=== PATIENT | male | born 1940 | race Caucasian/White ===

== ENCOUNTER → 2018-07-05 | Outpatient (CLI) | payer OTHER ==
[~2018-07-05] MED LIST: ALLERGY MED; DIOVAN; DIOVAN HCT 3201 EACH PO; IBUPROFEN 200200 M1 PO; LIPITOR; LIPITOR40 MG PO; NABUMETONE 750750 M1 PO; NAPROSYN500 MG PO; NORCO 5-325 TA1 EACH PO; NORFLEX100 MG PO; OXYCODON-ACETA1 EAC1 PO; OXYCODONE-ACET1 EAC2 PO; TRICOR; TRICOR145 MG PO; VALIUM5 MG PO
[2018-07-05 13:13] LABS: BASOPHILS 0.6 % (0.0-2.0); EOSINOPHILS 1.7 % (0.0-3.0); HEMATOCRIT 32.1 % (42.0-52.0); LYMPHOCYTES 22.4 % (24.0-44.0); MCHC 34.3 g/dL (28.0-37.0); MCV 96.1 fL (80.0-100.0); MONOCYTES 6.8 % (1.0-8.0); PLATELET COUNT 308 thou/uL (150-400); POLYS 68.5 % (36.0-66.0); RBC 3.34 mil/uL (4.50-6.00); RDW 13.2 % (10.5-14.5); WBC 7.3 thou/uL (4.0-11.0)
[2018-07-05 13:17] LABS: URINE BILIRUBIN NEGATIVE (Negative); URINE BLOOD 1+ (Negative); URINE CLARITY CLEAR; URINE COLOR YELLOW; URINE GLUCOSE-RANDOM* NEGATIVE (Negative); URINE KETONES NEGATIVE (Negative); URINE LEUKOCYTES-REFLEX NEGATIVE (Negative); URINE NITRITE-REFLEX NEGATIVE (Negative); URINE PROTEIN (DIPSTICK) 2+ (Negative); URINE SPECIFIC GRAVITY >= 1.030 (1.005-1.035); URINE UROBILINOGEN 0.2 E.U./dl (0.2-1.0)
[2018-07-05 13:26] LABS: BACTERIA-REFLEX None Seen /HPF (None Seen); SQUAMOUS None Seen /LPF (0-3); URINE RBC 0-2 Rare /HPF (0-2); URINE WBC-REFLEX None Seen /HPF (0-5)
[2018-07-05 13:27] LABS: CASTS None Seen /LPF (None Seen); CRYSTALS None Seen /LPF (None Seen)
[2018-07-05 13:34] LABS: ALBUMIN 3.4 g/dL (3.4-5.0); ANION GAP 9 mmol/L (7-16); BUN 19 mg/dL (7-18); CALCIUM 8.6 mg/dL (8.5-10.1); CHLORIDE 105 mmol/L (98-107); CHOLESTEROL 193 mg/dL (<200); CO2 25 mmol/L (21-32); CREATININE 1.3 mg/dL (0.7-1.3); GLUCOSE 94 mg/dL (74-106); HDL CHOLESTEROL 68 mg/dL (>40); LDL CHOLESTEROL 96 mg/dL (<100); MAGNESIUM 1.6 mg/dL (1.8-2.4); POTASSIUM 3.9 mmol/L (3.5-5.1); SGOT 20 U/L (15-37); SGPT 13 U/L (30-65); SODIUM 139 mmol/L (136-145); TC:HDL 2.8 Ratio (Not establshd); TOTAL BILIRUBIN 0.3 mg/dL (<0.1-1.0); TOTAL PROTEIN 6.8 g/dL (6.4-8.2); TRIGLYCERIDE 147 mg/dL (<150); VLDL 29 mg/dL (<40)
[2018-07-05 13:54] LABS: TSH 1.285 uIU/mL (0.358-3.740)
== END ==
LOC: SEN 08:18
PROVIDERS: Nurse Practitioner Family
DX: I10 Essential (primary) hypertension (principal); E78.5 Hyperlipidemia, unspecified

== ENCOUNTER 2018-12-21 13:40 | Inpatient (IN) | payer OTHER ==
[~2018-12-21] VITALS: Ht 177.8 cm; Wt 78.8 kg
--- NOTE | ~2018-12-21 | EMS ---
[address] [address] EMS Patient Care Report Name: CALLUM IBRAHIM Room #: REG MATT Guthrie#: [id number] Admission: 12/21/18 Attend Phys: Discharge: Date of : 44 Report #: [id number] THIS REPORT FOR: //name// Report Transmitted: 12/21/2018 13:48 EMS Care Summary [facility] MED-ACT Incident [id number] @ 12/21/2018 12:56 Incident Location [address] [place] [address] Patient CALLUM SANTIAGO Male, 78 Years 1940 Patient Address [address] [place] [address] Patient History Dementia,Hypertension,Hyperlipidemia, Patient Allergies No known allergies, Patient Medications Memantine, Tricor, Atorvastatin, Valsartan, Citalopram, Hydrochlorothiazide (Hctz), Donepezil, Chief Complaint He's not acting his normal self Disposition Transported No Lights/Hope Dispatch Reason Altered Mental Status Transported To [facility] Narrative [id number] arrived to find pt seated in chair [facility] and [address] [address] EMS Patient Care Report Name: CALLUM IBRAHIM Room #: REG MATT Cuellar.#: [id number] Admission: 12/21/18 Attend Phys: Discharge: Date of : 44 Report #: [id number] in the care of [id number] personnel and pts son. Pts son reports pt has dementia and has troubles forming words and answering questions but that he usually knows his name. Today, pts son arrived around noon to take pt to an appointment. Pt had a friend over earlier that had remarked to pts son that pt appeared very lucid this morning. This was around 9:00 am today. Pts son states pt had been out for two walks this morning, no out of the ordinary, and had been sitting outside. Pts son went out to have pt come inside and pt wouldn't verbally respond to pt and was weak. Pts son denies any recent illness for patient, history of UTI, Stroke or TIA. Pts son states pt has overnight caregivers and nothing out of the ordinary was reported to son. Pt was able to stand from chair and take a few steps to the cot. Pt secured in semi-fowlers position and taken to MICU for non-emergent transport to [place] as pts son requested. Pt was noted to answer some questions verbally but was confused and had some random utterances. Pt remained firm on the left arm pain and unable to lift it due to pain. Pt report given to ER physician and then pt was taken to CT scanner. Pt report and transfer of care given to MELTING OPERATOR room #1. Initial Vitals @13:20P: 81,R: 16,BP: 122/62,SpO2: 97,NH Suspected: false @13:30P: 79,R: 16,BP: 123/62,SpO2: 96, @13:13P: 88,R: 16,BP: 119/60,GCS: 14,Temp: 99.4F,SpO2: 98,Revised Trauma: 12,NH Suspected: false @PTAP: 87,R: 18,BP: 108/54,GCS: 14,Glucose: 178,SpO2: 96,Revised Trauma: 12, Assessments @13:20MENTAL:Person Oriented,SKIN:Diaphoresis,Hot,HEENT:Head/Face: No Abnormalities,Neck/Airway: No Abnormalities,LUNG SOUNDS:General: No Abnormalities,ABDOMEN:General: No Abnormalities,PELVIS//GI:Incontinence,EXTREMITIES:Left Arm: Other,Right Arm: No Abnormalities,Left Leg: No Abnormalities,Right Leg: No Abnormalities,PULSE:Radial: 2+ Normal,NEURO:Other, Impression Transient Cerebral Ischemic Attack (TIA) Procedures @13:2012-Lead ECGResponse: UnchangedSucceeded@13:20Saline Lock 10cc (18 ga) Site: Hand-RightResponse: UnchangedSucceeded Timeline [facility] [address] [place] [address] EMS Patient Care Report Name: CALLUM IBRAHIM Room #: REG [facility].#: [id number] Admission: 12/21/18 Attend Phys: Discharge: Date of : 44 Report #: [id number] BRICKLAYER PAVING BRICK,BP: 108/54 M,PULSE: 87,RR: 18 R,SPO2: 96 Ox,ETCO2: ,B,PAIN: ,GCS: 14, 12:55,Call Received 12:55,Psap Call 12:56,Dispatched 12:56,En Route 13:02,On Scene 13:03,At Patient 13:13,BP: 119/60 M,PULSE: 88,RR: 16 R,SPO2: 98 Ox,ETCO2: ,BG: ,PAIN: ,GCS: 14, 13:20,12-Lead ECG,Response: UnchangedSucceeded, 13:20,BP: 122/62 M,PULSE: 81,RR: 16 R,SPO2: 97 Ox,ETCO2: ,BG: ,PAIN: ,GCS: , 13:20,Saline Lock 10cc 18 ga Site: Hand-Right,Response: UnchangedSucceeded, 13:21,Depart Scene 13:30,BP: 123/62 M,PULSE: 79,RR: 16 R,SPO2: 96 Ox,ETCO2: ,BG: ,PAIN: ,GCS: , 13:36,At Destination 14:02,Call Closed Disclaimer v1.1 Copyright 2019 [employer] This EMS Care Summary contains data elements from the applicable legal record (which may be displayed differently). It is designed to provide pertinent information for the following purposes: continuity of care, clinical quality, and state data reporting. The complete legal record is available to ED staff and administrators of the receiving hospital in [employer]'s Patient Tracker. All data is provided "as is."
[2018-12-21 13:40] VITALS: BP 133/61
[2018-12-21 14:00] LABS: ABSOLUTE NEUTROPHILS 5.9 thou/uL (1.4-8.2); BASOPHILS 0.4 % (0.0-2.0); EOSINOPHILS 1.1 % (0.0-3.0); HEMOGLOBIN 10.1 gm/dL (14.0-18.0); LYMPHOCYTES 18.4 % (24.0-44.0); MCH 31.1 pg (26.0-34.0); MCHC 33.6 g/dL (28.0-37.0); MCV 92.5 fL (80.0-100.0); MONOCYTES 9.6 % (1.0-8.0); PLATELET COUNT 323 thou/uL (150-400); POLYS 70.5 % (36.0-66.0); RBC 3.24 mil/uL (4.50-6.00); RDW 13.5 % (10.5-14.5); WBC 8.4 thou/uL (4.0-11.0)
[2018-12-21 14:10] LABS: ANION GAP 10 mmol/L (7-16); BUN 32 mg/dL (7-18); CALCIUM 8.3 mg/dL (8.5-10.1); CHLORIDE 108 mmol/L (98-107); CO2 24 mmol/L (21-32); CREATININE 1.7 mg/dL (0.7-1.3); GLUCOSE 164 mg/dL (74-106); POTASSIUM 3.5 mmol/L (3.5-5.1); SODIUM 142 mmol/L (136-145)
[2018-12-21 14:12] LABS: APTT 29.3 Seconds (24.5-32.8)
[2018-12-21 14:20] LABS: ALBUMIN 2.9 g/dL (3.4-5.0); SGOT 11 U/L (15-37); SGPT 10 U/L (30-65); TOTAL BILIRUBIN 0.3 mg/dL (<0.1-1.0); TOTAL PROTEIN 6.4 g/dL (6.4-8.2); TROPONIN-I <0.06 ng/mL (<0.06)
[2018-12-21 15:10] LABS: URINE BILIRUBIN NEGATIVE (Negative); URINE BLOOD NEGATIVE (Negative); URINE CLARITY CLEAR; URINE COLOR YELLOW; URINE GLUCOSE-RANDOM* NEGATIVE (Negative); URINE KETONES NEGATIVE (Negative); URINE LEUKOCYTES NEGATIVE (Negative); URINE NITRITE NEGATIVE (Negative); URINE PROTEIN (DIPSTICK) TRACE (Negative); URINE SPECIFIC GRAVITY 1.015 (1.005-1.035); URINE UROBILINOGEN 0.2 E.U./dl (0.2-1.0)
[2018-12-21] MEDS ORDERED: ARICEPT 5 MG TAB5 MG PO (16:11)
[2018-12-21] MEDS ORDERED: CELEXA20 MG PO (16:12)
[2018-12-21 16:14] VITALS: BP 145/67
--- NOTE | 2018-12-21 18:35 | NUR ---
PATIENT ADMITTED TO ROOM AT THIS TIME. HE WAS BROUGHT UP BY SECURITY HE IS AN ELOPMENT RISK. HE KEEPS TRYING TO LEAVE ROOM TO "GO HOME". NOT REDIRECTABLE AT ALL AT THIS TIME. HE AMBULATES WITH STEADY GAIT. SPEECH IS NOT VERY CLEAR BUT HE DOES VOICED CONCERN THAT HE WANTS TO GO HOME.
[2018-12-21 20:55] VITALS: BP 154/63
--- NOTE | 2018-12-22 03:58 | NUR ---
Assumed care at 1845. Pt resting in bed with son at bedside. AOX2. VSS. Speaks in monotone one or two words at a time. Skin in intact. Lungs are clear. Up at raymundo. Seater has been discontinue. Pt hasnt tried to wonder around. No identified needs at the moment. Call light within reach. Will continue to monitor.
[2018-12-22 06:08] LABS: HEMATOCRIT 30.7 % (42.0-52.0); HEMOGLOBIN 10.2 gm/dL (14.0-18.0); MCH 31.2 pg (26.0-34.0); MCHC 33.3 g/dL (28.0-37.0); MCV 93.6 fL (80.0-100.0); RBC 3.28 mil/uL (4.50-6.00); RDW 13.6 % (10.5-14.5); WBC 8.3 thou/uL (4.0-11.0)
[2018-12-22 06:21] LABS: CALCIUM 8.7 mg/dL (8.5-10.1); CREATININE 1.6 mg/dL (0.7-1.3)
[2018-12-22 06:22] LABS: POTASSIUM 4.5 mmol/L (3.5-5.1)
[2018-12-22 07:30] VITALS: BP 137/61
--- NOTE | 2018-12-22 07:47 | EKG ---
[place] [address] [facility] [place] [address] ELECTROCARDIOGRAM REPORT Name: ESTEBANMihaelaCALLUM Nino Room #: 462-P ADM IN M.R.#: [id number] Admission: 12/21/18 Attend Phys: Narinder Chandler MD Discharge: Date of : 44 Report #: [id number] THIS REPORT FOR: //name// [facility] ED Test Date: 2018-12-21 Test Time: 13:57:13 Pat Name: CALLUM IBRAHIM Department: Room: 462 Gender: M Health Care Attorney: JESS : 1940 Requested By: Martin Gorman Order Number: [id number] MD: Carlos Daugherty Measurements Intervals [place] Rate: 73 P: 39 ND: 157 QRS: -34 QRSD: 100 T: 64 QT: 382 QTc: 421 Interpretive Statements Sinus rhythm Left axis deviation Abnormal R-wave progression, early transition Baseline wander in lead(s) V5 No previous ECG available for comparison Electronically Signed On 12-22-2018 7:46:48 CDT by Carlos Daugherty [email or web address] <ELECTRONICALLY SIGNED> By: Carlos Daugherty MD, [facility] 12/22/18 0746 [id number] Carlos Daugherty MD, [facility] /EPI
--- NOTE | 2018-12-22 13:41 | NUR ---
DISCHARGE PLANNING. ANTICIPATED DISCHARGE LATER THIS WEEK. POST ACUTE RECOMMENDED AT DISCHARGE. PATIENT WILL NEED TO TRANSITION INTO RN INFORMATICS CARE PLACEMENT ONCE REHAB STENT IS COMPLETED. REFERRAL FAXED TO [facility] ([facility] FOR DISCHARGE PLACEMENT NEEDS, PER FAMILY REQUEST. PATIENTS RESIDES AT [facility]. CALL RECEIVED FROM [facility] ADMISSIONS. ACCEPTING OF PATIENT AT DISCHARGE. [facility] TO FACILITATE PATIENTS NEEDS ONCE DISCHARGE ORDERS COMPLETED. UNIT SW AWARE. FOLLOWING TO ASSIST.
--- NOTE | 2018-12-22 13:46 | NUR ---
TOWARDS POC PT A/O X1, CALM, COOPERATIVE. NO AGRESSIVE BEHAVIOR NOTED. WILL CONTNUE TO MONITOR.
[2018-12-22 14:56] VITALS: BP 139/59
--- NOTE | 2018-12-22 16:30 | NUR ---
PT ADMITTED RELATED TO AMS. CM REVIEWED CHART AND SPOKE WITH CARE TEAM. CM MET WITH PT AND DTR IN LAW JOSÉ AT BEDSIDE THIS DAY.PT WAS SLEEPING SO DTR IN LAW PROVIDED HISTORY. SHE INDICATED THAT PT AND SPOUSE HAD BEEN LIVING IN AN APARTMENT ICT HELP DESK OFFICER BUT THAT PT'S SPOUSE HAD BEEN HOSPITALIZED HERE AND WENT TO [facility] AND WILL BE TRANSITIONING TO LTC FROM THERE. THEY INDICATED THAT PT CAN'T LIVE ALONE AND CAN'T TAKE CARE OF HIMSELF. THEY ASKED THAT REFERAL BE SENT TO [facility] FOR POSSIBLE SKILLED WITH TRAMSITION TO LT FOR PT WELL. REFERRAL WAS SENT AND THEY ACCEPTED PT. CM CALLED AND LEFT VM FOR PT'S SON. CM TO FOLLOW INDICATED WITH DC PLANNING.
[2018-12-22 21:15] VITALS: BP 145/67
--- NOTE | 2018-12-23 03:56 | NUR ---
TOWARDS POC Assumed care at 1845. Pt resting in bed. VSS. AOX1. Son is at bedside. No incident of agitation. Pt has been ambulating a lot on unit with sitter monitoring. No identified needs at the moment. Will continue to monitor.
[2018-12-23 10:09] VITALS: BP 140/55
--- NOTE | 2018-12-23 13:43 | NUR ---
PT STABLE THROUGHOUT SHIFT. SITTER D/C'D. PT REMIANS CONFUSED BUT COOPERATIVE. PT RESTING, WILL CONTINUE TO MONITOR.
[2018-12-23 13:58] VITALS: BP 150/63
--- NOTE | 2018-12-23 19:24 | NUR ---
AT END OF SHIFT PT BECAME EXTREMELY ADAMANT ABOUT LEAVING, UNABLE TO REDIRECT OR CONVINCE TO RETURN TO ROOM. PT GIVEN MEDICATION AND ORDER FOR IV MED. WILL CONTINUE TO MONITOR.
[2018-12-24 00:21] VITALS: BP 141/56
--- NOTE | 2018-12-24 03:21 | NUR ---
ASSUMED CARE AROUND 1900. ALERT AND AWAKE, DISORITNETED X 4. CONSTANTLY TRIES TO GET UP TO LEAVE THE ROOM OR THE FLOOR. STARTED TO GET AGITATED AND FRUSTRATED WITH DAY RN. CALLED MATERIAL INSPECTOR WIRELESS INTERNET INSTALLER AND RECEIVED AN ORDER FOR MEDICATIONS. PERSISTENT ATTEMPTS TO LEAVE THE ROOM AND REPEATLY SAYING HE HAS TO LEAVE. SITTER AT BEDSIDE D/T FLIGHT RISK. UNABLE TO REDIRECT OR MAKE PT UNDERSTAND THAT THIS IS HOSPITAL D/T CONFUSION FROM DEMENTIA OR DELIRIUM. SITTER AT BEDSIDE AT ALL TIME AT THE MOMENT. WILL CONT TO MONITOR FOR ANY CHANGES IN CONDITION. HOME MEDS RESTARTED BY MATERIAL INSPECTOR WIRELESS INTERNET INSTALLER AFTER PT WAS EVALUATED BY MATERIAL INSPECTOR.
[2018-12-24 03:39] LABS: CALCIUM 8.5 mg/dL (8.5-10.1); CREATININE 1.7 mg/dL (0.7-1.3); POTASSIUM 3.6 mmol/L (3.5-5.1)
[2018-12-24 08:51] VITALS: BP 155/59; BP 196/115
[2018-12-24 16:20] VITALS: BP 136/57
--- NOTE | 2018-12-24 19:55 | NUR ---
ASSUMED CARE OF PATIENT AT 0715, PATIENT ALERT WITH CONFUSION. PATIENT HAS 1:1 SITTER MOST OF THE DAY. PATIENT HAS RIGHT HAND IV WITH COBAN IN PLACE. PATIENT DID TAKE ALL MEDS, AND EATS ALL MEALS W/O DIFFICULTY. PHYSICAL THERAPY WORKED WITH THE PATIENT TODAY. PATIENT SLEPT MOST OF THE DAY, STARTED GETTING IMPULSIVE ABOUT 1600, DR LOUIS HERE THIS EVENING AND WANTS 1:1 DISCONTINUED, DUE TO TRYING TO GET PATIENT TO FACILITY. VOIDS W/O DOFFICULTY IN THE BATHROOM. WILL CONTINUE TO MONITOR.
--- NOTE | 2018-12-25 03:03 | NUR ---
ASSUMED CARE AROUND 1900. ALERT AND AWAKE. SITLL IMPULSIVE TO GET UP AND PACE, TRYING TO LEAVE THE ROOM. SOMEHOW REORIENTABLE TO BRING THE PT BACK TO ROOM. RED ALARM ON AND FALL REPCAUTIONS PLACED. NO S/S ACUTE DISTRESS NOTED OR REPORTED AT THIS TIME. WILL CONT TO MONITOR FOR ANY CHANGES IN CONDITION.
[2018-12-25 16:45] VITALS: BP 156/57
--- NOTE | 2018-12-25 20:03 | NUR ---
PT A&OX3, VSS, DENIES PAIN. PATIENT COOPERATIVE AND PLEASANT BEGINNING OF SHIFT AND BEHAVIOR STARTED TO DECLINE APPROX 1300. AT THAT TIME PATIENTS STEP DAUGHTER LEFT. PATIENT STARTED TO WANT TO WALK AROUND OFF THE FLOOR, HE BECAME MORE CONFUSED, AGGRESIVE WITH WITH NURSE, AGITATED. THIS NURSE GAVE BOTH PRN BEHAVIOR MEDICATIONS AVAILABLE. PATIENT RESTED FOR 1 HOUR AND AGGRESSION STARTED UP AGAIN. PATIENT REFUSED NEW GOWN AND A SHOWER TODAY. PATIENT STEADY ON FEET AND HELPED TO THE BATHROOM OFTEN. AT LEAST ONE PERSON SAT AT THE NURSING STATION TO KEEP AN EYE ON PATIENT. TOWARDS THE END OF THE DAY THE AMMONIA TECHNICIAN HAD TO STAY WITH PATIENT D/T PATIENT WANTING TO LEAVE HOSPITAL. WILL CONTINUE TO MONITOR.
--- NOTE | 2018-12-26 03:57 | NUR ---
ASSUMED CARE AROUND 1900. ALERT AWAKE. MO S/S ACUTE DISTRESS NOTED OR REPORTED AT THIS TIME. WILL CONT TO MONITOR FOR ANY CHANGES IN CONDITION.
[2018-12-26 08:00] VITALS: BP 183/64
[2018-12-26 15:00] VITALS: BP 139/53
[2018-12-26 19:46] VITALS: BP 1248/64; BP 148/64
--- NOTE | 2018-12-26 19:46 | NUR ---
ASSUMED CARE OF PATIENT AT 0715, PATIENT ALERT WITH CONFUSION, WANDERING THROUGHOUT THE SHIFT, REDIRECTED. SON HERE TODAY X 2, AMBULATED IN HALLWAYS WITH PATIENT, BROUGHT PATIENT DINNER. PATIENT HAS RIGHT FOREARM IV IN PLACE, FLUSHED WITH NORMAL SALINE AND REMAINS PATENT, WRAPPED WITH COBAN. PATIENT STILL WAITING ON AUTHORIZATION FOR FACILITY PLACEMENT. FALL PRECAUTIONS IN PLACE, WILL CONTINUE TO MONITOR.
--- NOTE | 2018-12-27 04:35 | NUR ---
PATIENT ALERT AND ORIENTED TO NAME. UP ADLIB IN HIS ROOM AND HALLWAY AT THE BEGINNING OF THE SHIFT. MONITORED FOR SAFETY AND GIVEN MEDICATION FOR A RESTFUL NIGHT HE HAS BEEN ACTIVE MOST OF THE DAY PER THE AM NURSE. UP TWICE AT TIME OF THIS NOTE TO USE THE BATHROOM. RESTING QUIETLY. WILL MONITOR. COOPERATIVE AND PLEASANT. NEEDS REDIRECTION.
[2018-12-27 07:00] VITALS: BP 152/60
[2018-12-27] MEDS ORDERED: DEPAKOTE SPRIN125 MG PO (13:04)
[2018-12-27] MEDS ORDERED: ZYPREXA 5 MG TAB5 M2 PO (13:04)
[2018-12-27] MEDS ORDERED: TYLENOL325 MG PO (13:04)
--- NOTE | 2018-12-27 13:29 | NUR ---
DP faxed discharge paperwork to [facility], and also gave to 4E telegraphic service dispatcher for chart copy. Patient dc today.
--- NOTE | 2018-12-27 16:40 | NUR ---
ASSUMED PATIENT CARE AT 0715. SLEEPING IN BED AT THAT TIME. WOKE PATIENT TO EAT BREAKFAST. EATING ALL OF MEALS. ALERT TO PERSON ONLY. IMPULSIVE. STEADY GAIT NOTED. EASY TO REDIRECT BUT FORGETS INSTRUCTIONS QUICKLY. PLEASANTLY CONFUSED. CALLED REPORT TO BLAISE AT [facility]. DISMISSED VIA VAN IN STABLE CONDITION.
== END 2018-12-27 15:45 | DRG 682 ==
LOC: ER 13:40 → EROBS 15:41 → 4W 15:41
PROVIDERS: Emergency Medicine; Nurse Practitioner Acute Care; ADMIT Hospitalist
DX: N17.9 Acute kidney failure, unspecified (principal); G93.41 Metabolic encephalopathy; F03.90 Unspecified dementia, unspecified severity, without behavioral disturbance, psychotic disturbance, mood disturbance, and anxiety; M19.012 Primary osteoarthritis, left shoulder; I10 Essential (primary) hypertension; E78.5 Hyperlipidemia, unspecified; Z79.899 Other long term (current) drug therapy
CPT/HCPCS: 10040; 10045